=== PATIENT | female | born 1970 ===

== ENCOUNTER → 2018-05-09 | Outpatient (RCR) | payer OTHER ==
[~2018-05-09] MED LIST: LIDOCAINE VISC 2% SOLN 15 ML UDC ONE
== END ==
LOC: WCC 04-26 09:28
PROVIDERS: ATTEND Podiatrist Foot & Ankle Surgery
DX: T25.121A Burn of first degree of right foot, initial encounter (principal); T54.91XA Toxic effect of unspecified corrosive substance, accidental (unintentional), initial encounter

== ENCOUNTER 2018-05-17 09:36 | Outpatient (RCR) | payer OTHER | END 2018-06-09 | LOC: WCC 09:36 | PROVIDERS: ATTEND Podiatrist Foot & Ankle Surgery | DX: T25.121A Burn of first degree of right foot, initial encounter (principal); T54.91XA Toxic effect of unspecified corrosive substance, accidental (unintentional), initial encounter ==